=== PATIENT | male | born 1975 | race Hispanic/Latino ===

== ENCOUNTER 2024-08-08 14:51 | Inpatient (IN) | payer SELFPAY ==
[~2024-08-08] VITALS: Ht 177.8 cm; Wt 136.0 kg
[2024-08-08] VITALS (16 sets, daily range): BP systolic 122–163; BP diastolic 50–80; PULSE 68–77; RESP 9–17; TEMP 98.2–98.3; O2SAT 98
[2024-08-08 15:31] LABS: BASOPHILS # (AUTO) 0.05 K/uL (0.00-0.20); BASOPHILS % (AUTO) 0.4 % (0.0-5.0); EOSINOPHILS # (AUTO) 0.19 K/uL (0.00-0.70); EOSINOPHILS % (AUTO) 1.6 % (0.0-8.0); HEMATOCRIT 43.6 % (42-54); LYMPHOCYTES # (AUTO) 2.5 K/uL (1.0-4.8); LYMPHOCYTES % (AUTO) 20.4 % (21.0-51.0); MEAN CORPUSCULAR HEMOGLOBIN 30.9 pg (27.0-33.0); MEAN CORPUSCULAR HGB CONC 33.5 g/dL (32.0-36.0); MEAN CORPUSCULAR VOLUME 92.4 fL (79-99); MONOCYTES # (AUTO) 1.1 K/uL (0.1-1.0); MONOCYTES % (AUTO) 9.3 % (3.0-13.0); NEUTROPHILS # (AUTO) 8.2 K/uL (1.8-7.7); NEUTROPHILS % (AUTO) 67.5 % (40.0-77.0); PLATELET COUNT (AUTO) 226 K/uL (130-400); RED BLOOD CELL COUNT(AUTO) 4.72 MIL/uL (4.50-6.20); RED CELL DISTRIBUTION WIDTH 13.4 % (11.0-15.5); WHITE BLOOD COUNT (AUTO) 12.2 K/uL (4.8-10.8)
[2024-08-08 15:40] LABS: POTASSIUM 3.8 mmol/L (3.5-5.1)
[2024-08-08] MEDS: ASPIRIN 81MG CHEW TAB PO ONE (16:03)
[2024-08-08] MEDS: NITROGLYCERIN 1GM OINT 1 INCH/1GM TD ONE (16:22)
[2024-08-08] MEDS ORDERED: NITROGLYCERIN 30 GM TUBE TD ONE (16:30)
[2024-08-08 16:49] LABS: ALBUMIN 3.9 g/dL (3.5-5.0); BILIRUBIN,DIRECT 0.1 mg/dL (0.0-0.3); BILIRUBIN,TOTAL 0.6 mg/dL (0.2-1.0); TOTAL PROTEIN, SERUM 7.9 g/dL (6.0-8.3)
[2024-08-08] MEDS ORDERED: PoTASSium chl 10% ELIXIR 20MEQ 20 MEQ/15 ML UDCUP PO PRN (17:00)
[2024-08-08] MEDS ORDERED: PoTASSium chloRIDE 20MEQ ER 20 MEQ ERTAB PO PRN (17:00)
[2024-08-08] MEDS ORDERED: MAGNESIUM 2GM PREMIX 50ML 50 ML IV SCH (17:00)
[2024-08-08] MEDS ORDERED: ondanSETRON 4MG INJ IVP PRN (17:00)
[2024-08-08] MEDS ORDERED: PoTASSium chloRIDE 20MEQ/100ML 100 ML IV PRN (17:00)
[2024-08-08 17:08] LABS: APPEARANCE,URINE CLEAR (CLEAR); BILIRUBIN,URINE NEGATIVE (NEGATIVE); COLOR,URINE LIGHT-YELLOW (YELLOW); GLUCOSE, URINE (UA) NEGATIVE (NEGATIVE); KETONES,URINE NEGATIVE (NEGATIVE); LEUKOCYTE ESTERASE ,URINE NEGATIVE Leu/uL (NEGATIVE); NITRATE,URINE NEGATIVE (NEGATIVE); OCCULT BLOOD,URINE NEGATIVE (NEGATIVE); PH,URINE 5.5 (5.0-8.0); PROTEIN,URINE NEGATIVE (NEGATIVE); UROBILINOGEN,URINE 0.2 mg/dL (0.2-1.0)
[2024-08-08 17:09] LABS: ADD UA MICROSCOPIC NO
[2024-08-08] MEDS: FAMOTIDINE 20MG VIAL IV SCH (17:10)
[2024-08-08] MEDS: ENOXAPARIN SODIUM 80 MG/0.8 ML SQ ONE (17:11)
[2024-08-08 17:24] LABS: INR 0.94 (0.85-1.15); PROTHROMBIN TIME 10.2 SEC (9.6-11.6)
[2024-08-08 17:25] LABS: PARTIAL THROMBOPLASTIN TIME 29.6 SEC (26.3-35.5)
[2024-08-08 17:31] LABS: HEMOGLOBIN A1C 5.6 % (4.0-6.0)
[2024-08-08] MEDS: cloPIDOgrel 300MG TAB PO ONE (18:12)
[2024-08-08 18:23] LABS: MAGNESIUM 2.1 mg/dL (1.80-2.40); THYROID STIMULATING HORMONE 3.38 uIU/mL (0.36-3.74)
[2024-08-08] MEDS ORDERED: LIDOCAINE HCL 400MG/20ML VIAL ONE (18:35)
[2024-08-08] MEDS ORDERED: IOHEXOL 350 MG/ML 100ML INFUS..BTL IV ONE ×2 (18:35→19:34)
[2024-08-08] MEDS ORDERED: HEParin-NS 1,000 UNIT/500 ML 1,000 ML IV ONE (18:36)
[2024-08-08] MEDS ORDERED: NITROGLYCERIN 50MG VIAL ONE (18:36)
[2024-08-08] MEDS ORDERED: MIDAZOLAM HCL 1 MG/ML 2ML VIAL ONE ×2 (18:49→19:49)
[2024-08-08] MEDS ORDERED: FENTanyl CITRate PF 50 MCG/1 ML 2ML VIAL ONE (18:49)
[2024-08-08] MEDS ORDERED: BIVALIRUDIN 250 MG/VIAL IV ONE ×2 (19:03→19:34)
[2024-08-08] MEDS ORDERED: HEParin 1,000 UNIT VIAL ONE (19:03)
[2024-08-08] MEDS ORDERED: HEParin 10,000 UNIT/10ML (1,000 UNIT/ML) VIAL ONE (19:04)
[2024-08-08] MEDS ORDERED: HEParin-NS 1,000 UNIT/500 ML 500 ML IV ONE (19:47)
[2024-08-08] MEDS ORDERED: cloPIDOgrel 300MG TAB ONE (20:18)
[2024-08-08] MEDS: metoPROLOL tartRATE 25 MG TAB PO SCH (21:00)
[2024-08-08] MEDS ORDERED: NITROGLYCERIN 0.4 MG SL TAB SL PRN (21:00)
[2024-08-08] MEDS: NITROGLYCERIN 50MG/D5W 250ML 1 BOT ONE (23:38)
[2024-08-09] VITALS (64 sets, daily range): BP systolic 91–161; BP diastolic 43–117; PULSE 64–79; RESP 10–29; TEMP 98.4–100.6; O2SAT 98–99
[2024-08-09] MEDS: metoPROLOL tartRATE 25 MG TAB PO SCH (00:08)
[2024-08-09] MEDS: atorVAStatin 40 MG TABLET PO SCH (00:08)
[2024-08-09] MEDS: FISH OIL 1000 MG/CAP PO SCH (00:08)
[2024-08-09] MEDS: 0.9%NACL 1000ML 1,000 ML IV SCH (00:09)
[2024-08-09] MEDS: morPHINE 2 MG SYG IVP PRN ×2 (00:30→01:56)
[2024-08-09] MEDS ORDERED: NITROGLYCERIN 50MG/D5W 250ML 250 BOT IV SCH (00:30)
[2024-08-09 04:01] LABS: BASOPHILS # (AUTO) 0.04 K/uL (0.00-0.20); BASOPHILS % (AUTO) 0.3 % (0.0-5.0); EOSINOPHILS # (AUTO) 0.02 K/uL (0.00-0.70); EOSINOPHILS % (AUTO) 0.2 % (0.0-8.0); HEMATOCRIT 40.4 % (42-54); IMMATURE GRANULOCYTE ABSOLUTE 0.08 K/uL (0-1); LYMPHOCYTES # (AUTO) 1.8 K/uL (1.0-4.8); LYMPHOCYTES % (AUTO) 14.7 % (21.0-51.0); MEAN CORPUSCULAR HEMOGLOBIN 31.3 pg (27.0-33.0); MEAN CORPUSCULAR HGB CONC 34.2 g/dL (32.0-36.0); MEAN CORPUSCULAR VOLUME 91.6 fL (79-99); MONOCYTES % (AUTO) 8.1 % (3.0-13.0); NEUTROPHILS # (AUTO) 9.4 K/uL (1.8-7.7); NEUTROPHILS % (AUTO) 76.1 % (40.0-77.0); PLATELET COUNT (AUTO) 214 K/uL (130-400); RED BLOOD CELL COUNT(AUTO) 4.41 MIL/uL (4.50-6.20); RED CELL DISTRIBUTION WIDTH 13.3 % (11.0-15.5); WHITE BLOOD COUNT (AUTO) 12.4 K/uL (4.8-10.8)
[2024-08-09 04:29] LABS: ALBUMIN 3.4 g/dL (3.5-5.0); BILIRUBIN,TOTAL 0.9 mg/dL (0.2-1.0); CREATININE 0.9 mg/dL (0.5-1.3); POTASSIUM 4.1 mmol/L (3.5-5.1); TOTAL PROTEIN, SERUM 7.2 g/dL (6.0-8.3)
[2024-08-09] MEDS: ASPIRIN 81MG CHEW TAB PO SCH ×2 (09:00→09:05)
[2024-08-09] MEDS: cloPIDOgrel 75MG TAB PO SCH (09:06)
[2024-08-09] MEDS: LoSARTan 50 MG TABLET PO SCH (09:06)
[2024-08-09] MEDS: acetaMINOPHEN 500 MG TABLET PO PRN (19:45)
[2024-08-10 04:00] VITALS: BP 114/56; PULSE 75; RESP 20; TEMP 98.6
[2024-08-10 07:00] VITALS: BP 111/74; PULSE 71; RESP 18; TEMP 98
[2024-08-10 08:00] VITALS: O2SAT 97
[2024-08-10] MEDS ORDERED: CLOP-31 PO (12:04)
[2024-08-10] MEDS ORDERED: LOSA-418 PO (12:04)
[2024-08-10] MEDS ORDERED: ATOR40TA69 PO (12:04)
[2024-08-10] MEDS ORDERED: ASPI-1005 PO (12:04)
[2024-08-10] MEDS ORDERED: METO25 PO (12:04)
== END 2024-08-10 13:38 | disposition home or self-care (01) | DRG 322 ==
LOC: EDH 14:51 → EDHIP 16:49 → 2CV 22:28 → 2AH 08-09 16:42
PROVIDERS: ADMIT Internal Medicine; ATTEND Internal Medicine
PROC: 027036Z Dilation of Coronary Artery, One Artery with Three Drug-eluting Intraluminal Devices, Percutaneous Approach (ICD-10-PCS; principal; 2024-08-08)
PROC: B2151ZZ Fluoroscopy of Left Heart using Low Osmolar Contrast (ICD-10-PCS; 2024-08-08)
PROC: B2111ZZ Fluoroscopy of Multiple Coronary Arteries using Low Osmolar Contrast (ICD-10-PCS; 2024-08-08)
DX: I21.19 ST elevation (STEMI) myocardial infarction involving other coronary artery of inferior wall (principal); I23.7 Postinfarction angina; Z68.41 Body mass index [BMI] 40.0-44.9, adult; I24.9 Acute ischemic heart disease, unspecified; I25.10 Atherosclerotic heart disease of native coronary artery without angina pectoris; E66.9 Obesity, unspecified; R10.13 Epigastric pain; R51.9 Headache, unspecified; E66.01 Morbid (severe) obesity due to excess calories; D72.829 Elevated white blood cell count, unspecified; Z95.5 Presence of coronary angioplasty implant and graft; Z82.49 Family history of ischemic heart disease and other diseases of the circulatory system; Z82.3 Family history of stroke; Z59.7 Insufficient social insurance and welfare support
CPT/HCPCS: 36415; 70450; 71045; 80048; 80053; 80061; 80076; 81003; 83036; 83690; 83735; 84145; 84443; 84484; 85025; 85610; 85730; 86140; 93005; 93306; 93458; 99156; 99157; C1769; C1887; C1894; C9606; C9607; G0378; J0583; J1644; J1650; J2250; J2270; J3010; J3490; Q9967; C1725; C1874; Q9965